=== PATIENT | male | born 1945 | race Caucasian/White ===

== ENCOUNTER → 2022-02-02 | Outpatient (CLI) | payer MEDICARE ==
[~2022-02-02] VITALS: Ht 175.3 cm; Wt 103.0 kg
[~2022-02-02] MED LIST: ALLO100T PO; AMLO-251 PO; ATOR40TA70 PO; ENAL20TA16 PO; EZET10TA49 PO; GABA300C PO; GLIM4TAB5 PO; HYDR-3817 PO; LATA7.5D OP; METF-479 PO; SITA100T12 PO
== END | disposition home or self-care (01) ==
LOC: PREOP 11:07
PROVIDERS: ATTEND Surgery
DX: Z01.818 Encounter for other preprocedural examination (principal)

== ENCOUNTER 2022-02-03 11:26 | Day surgery (SDC) | payer MEDICARE ==
[2022-02-03] VITALS (12 sets, daily range): BP systolic 98–153; BP diastolic 63–86
[~2022-02-03] VITALS: Ht 175 cm; Wt 103.0 kg
[~2022-02-03 11:26] MED LIST changes: -HYDR-3817 PO
--- NOTE | 2022-02-03 11:43 | Progress Note-Pre Operative ---
Pre-Operative Progress Note H&P Reviewed The H&P was reviewed, patient examined and no changes noted. Date Seen by Provider: Feb 03, 2022 Time Seen by Provider: 11:30 Date H&P Reviewed: Feb 03, 2022 Time H&P Reviewed: 11:30 Pre-Operative Diagnosis: chronic calculous cholecystitis, sx reducible umbilical hernia DARRION DE LA O MD Feb 03, 2022 11:43
[2022-02-03] MEDS ORDERED: HYDR-3817 PO (11:45)
[2022-02-03] MEDS ORDERED: ceFAZolin 2 GM IV Premixed 50 ML IV ONE (11:45)
[2022-02-03] MEDS ORDERED: HYDROcodone/APAP 7.5 MG/325 MG (LORTAB, LORCET PLUS) TABLET PO PRN (11:45)
[2022-02-03] MEDS ORDERED: morphine INJ 10 MG/ML 1ML (SYR OR VIAL) IVP PRN ×2 (11:45)
[2022-02-03] MEDS ORDERED: ONDANSETRON 4 MG/2 ML (SDV) Z0FRAN IVP PRN ×2 (11:45→14:00)
[2022-02-03] MEDS ORDERED: ACETAMINOPHEN 325 MG TABLET PO PRN (11:45)
--- NOTE | 2022-02-03 11:45 | Discharge Inst-Surgical ---
D/C Lap Instructions-JAIRON New, Converted, or Re-Newed RX: RX on Chart Follow Up Activity as tolerated Regular Diet Symptoms to Report: Fever over 101 degree F, Nausea/Vomiting Infection Signs and Symptoms to report: Increased redness, Foul odor of wound, Increased drainage Bathing instructions: May shower Operative Area Clean/Dry; Keep incision clean/dry If any problems/questions: Contact your physician or go to Emergency Room DARRION DE LA O MD Feb 03, 2022 11:45
[2022-02-03] MEDS ORDERED: LIDOCAINE/EPI 2% 1:200,00 (XYLOCAINE) 20 ML VIAL ONE (13:11)
[2022-02-03] MEDS ORDERED: proPOfol 200 MG/20 ML (DIPRIVAN) VIAL IV ONE (13:41)
[2022-02-03] MEDS ORDERED: LIDOCAINE PF 2% 5 ML (XYLOCAINE) VIAL ONE (13:41)
[2022-02-03] MEDS ORDERED: ROCURONIUM 50 MG/5 ML (ZEMURON) VIAL IV ONE (13:41)
[2022-02-03] MEDS ORDERED: fentaNYL INJ 100 MCG/2 ML AMP ONE (13:41)
[2022-02-03] MEDS ORDERED: SEVOFLURANE (ULTANE) 15 ML INHAL SOLN ONE ×2 (13:41→14:56)
[2022-02-03] MEDS ORDERED: ONDANSETRON 4 MG/2 ML (SDV) Z0FRAN ONE (13:41)
[2022-02-03] MEDS ORDERED: MIDAZOLAM 2 MG/2 ML (VERSED) VIAL ONE (13:42)
[2022-02-03] MEDS ORDERED: morphine INJ 10 MG/ML 1ML (SYR OR VIAL) IVP ONE (14:00)
[2022-02-03] MEDS ORDERED: fentaNYL INJ 100 MCG/2 ML AMP IVP ONE (14:00)
[2022-02-03] MEDS ORDERED: GLYCOPYRROLATE 0.2 MG/ML (ROBINUL) 2 ML VIAL ONE (14:16)
[2022-02-03] MEDS ORDERED: NEOSTIGMINE 3 MG/3 ML VIAL ONE (14:16)
[2022-02-03] MEDS ORDERED: HYDROmorphone 2 MG/ML VIAL (DILAUDID) ONE (14:48)
[2022-02-03] MEDS ORDERED: SUGAMMADEX 500 MG/5 ML VIAL (BRIDION) IV ONE (14:56)
--- NOTE | 2022-02-03 14:56 | Progress Note-Post Operative ---
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 Anesthesia Type get Estimated Blood Loss Estimated blood loss (mL): minimal Specimens/Packing Specimens Removed gallbladder DARRION DE LA O MD Feb 03, 2022 14:56
[2022-02-03] MEDS ORDERED: LACTATED RINGERS 1,000 ML IV PRN (16:30)
--- NOTE | 2022-02-03 23:24 | OPERATIVE REPORT ---
DATE OF SERVICE: 02/03/2022 ATTENDING PRIMARY CARE PHYSICIAN: Dr. Man Macedo. PREOPERATIVE DIAGNOSES: Symptomatic chronic calculous cholecystitis, symptomatic reducible umbilical hernia. POSTOPERATIVE DIAGNOSES: Symptomatic chronic calculous cholecystitis, symptomatic reducible umbilical hernia. PROCEDURE: Laparoscopic cholecystectomy and umbilical hernia repair with mesh. SURGEON: Darrion De La O MD VP INFORMATION TECHNOLOGY: Ham Andrews APRN. ANESTHESIA: General endotracheal. ESTIMATED BLOOD LOSS: Minimal. FINDINGS: Symptomatic chronic calculous cholecystitis, symptomatic reducible umbilical hernia. DISPOSITION: The patient tolerated the procedure well. INDICATIONS: The patient is a 76-year-old male who has had problems with intermittent episodes of right upper abdominal quadrant as well as nausea for years; however, this has become more significant lately. He was sent by his primary care physician for an ultrasound, was found to have biliary sludge. He was also examined and found to have a reducible umbilical hernia, which was tender to palpation. DESCRIPTION OF PROCEDURE: The patient was brought to the operating room, laid supine on the table. After adequate IV pain and sedative medications and general endotracheal intubation, the abdomen was prepped and draped in standard surgical fashion. A 0.5% Marcaine with epinephrine was then used to anesthetize the overlying skin in the left upper abdominal quadrant and transverse skin incision made using a 15 blade. An 0 silk suture was applied to the medial aspect of the incision for retraction and a Veress needle inserted with a low opening pressure of 0 mmHg. The abdomen was then insufflated to 15 mmHg pressure. The Veress needle removed and a 5 mm XL trocar placed followed by a 5 mm 45-degree angle laparoscope visualizing the peritoneal cavity. A 4-quadrant abdominal exploration was performed. There was dilatation of the gallbladder, no gallbladder wall thickening. There was also a reducible umbilical hernia with a defect approximately 1.5 cm in size. Under direct visualization, we then proceed to place a 10 mm port through the umbilical hernia site after the skin and hernia sac were anesthetized using 1% lidocaine with epinephrine. In a similar manner, a right upper abdominal quadrant 5 mm port was placed. The patient was then placed in a reverse Trendelenburg position as well as plane right side up, left side down. The fundus of the gallbladder was then retracted anteriorly and superiorly. The hepatoduodenal ligament was then dissected open using blunt dissection as well as electrocautery on hook instrument as well as a [place] dissector. The entire critical view of safety was identified including the triangle of Calot as well as the cystic duct and artery as the only two structures going into the gallbladder as well as the cystic plate behind the proximal gallbladder. A timeout was then taken and the cystic duct and artery were then clipped proximally and distally and cut with EndoShears. The gallbladder was then dissected off the liver bed using electrocautery on hook instrument with visualization of good hemostasis as well as no leaking ducts of Luschka. The gallbladder was then removed through the 10 mm port site using an EndoCatch bag. We then proceeded with repair of the umbilical hernia. The hernia sac was dissected through the 10 mm port site under direct visualization using electrocautery. A 6.4 round coated polypropylene mesh was placed into the defect and absorbable tacks were then placed around the mesh in a double crown method. We then proceeded to place transfascial sutures on all four corners of the mesh using 0 Prolene suture. Good hemostasis was observed. The abdomen was then desufflated and the remaining ports removed. All skin incisions were closed using 4-0 Monocryl running subcuticular sutures. Wounds were then cleaned and covered with Dermabond. The umbilicus was then filled with tonsil sponges followed by 4 x 4 gauze followed by large Op-Site and abdominal binder. The patient tolerated the procedure well. We will start IV normal pain medication as well as a clear liquid diet. Once he is tolerating clears, has good pain control with oral pain medications, ambulating well, we will discharge him home where he will be instructed to do no heavy lifting or exertion for the next six weeks. Job ID: [id number] DocumentID: [id number] Dictated Date: 02/03/2022 14:53:00 Molder Offbearer Date: 02/03/2022 23:23:58 Dictated By: DARRION DE LA O MD
== END 2022-02-03 17:45 ==
LOC: SDC 11:26
PROVIDERS: ATTEND Surgery
DX: K80.10 Calculus of gallbladder with chronic cholecystitis without obstruction (principal); K42.9 Umbilical hernia without obstruction or gangrene; E66.9 Obesity, unspecified; Z68.33 Body mass index [BMI] 33.0-33.9, adult
CPT/HCPCS: 47562; 49652; 82947; 87081; 94664; C1781